=== PATIENT | male | born 1960 | race Caucasian/White ===

== ENCOUNTER 2017-12-09 10:33 | Inpatient (IN) | payer OTHER ==
[~2017-12-09] VITALS: Ht 167.6 cm; Wt 75.0 kg
[2017-12-09 10:41] VITALS: Ht 167.6 cm; Wt 75.0 kg
[2017-12-09 11:14] LABS: BASOPHIL % 0.1 % (0-2); PLATELET COUNT 217 x10^3mcL (130-400)
[2017-12-09 11:24] LABS: CALCIUM 8.4 mg/dL (8.5-10.1); CARBON DIOXIDE 27.9 mmol/L (21-32); CHLORIDE SERUM 98 mmol/L (98-107); CREATININE SERUM 0.9 mg/dL (0.7-1.3); GFR1 > 60 mL/min; GLUCOSE SERUM 141 mg/dL (74-106); POTASSIUM SERUM 3.5 mmol/L (3.5-5.1); SODIUM SERUM 133 mmol/L (136-145)
[2017-12-09 11:29] LABS: ALBUMIN 3.9 g/dL (3.4-5.0); ALKALINE PHOSPHATASE 81 U/L (46-116); ALT/SGPT 64 U/L (16-63); AST/SGOT 26 U/L (15-37); BILIRUBIN TOTAL 0.32 mg/dL (0.20-1.00); TOTAL PROTEIN, SERUM 7.2 g/dL (6.4-8.2)
[2017-12-09 11:39] LABS: CALCIUM 8.8 mg/dL (8.5-10.1); MAGNESIUM 1.8 mg/dL (1.8-2.4); T4(THYROXINE) 6.8 ug/dL (4.7-13.3)
[2017-12-09 17:24] VITALS: BP 124/81
[2017-12-09 21:15] VITALS: BP 103/65
[2017-12-10 05:38] VITALS: BP 106/68
[2017-12-10 06:30] LABS: BASOPHIL % 0.3 % (0-2); PLATELET COUNT 183 x10^3mcL (130-400)
[2017-12-10 06:36] LABS: ALKALINE PHOSPHATASE 68 U/L (46-116); ALT/SGPT 48 U/L (16-63); AST/SGOT 17 U/L (15-37); BILIRUBIN TOTAL 0.4 mg/dL (0.20-1.00); CALCIUM 8.2 mg/dL (8.5-10.1); CARBON DIOXIDE 26.9 mmol/L (21-32); CHLORIDE SERUM 104 mmol/L (98-107); CREATININE SERUM 0.7 mg/dL (0.7-1.3); GFR1 > 60 mL/min; GLUCOSE SERUM 93 mg/dL (74-106); MAGNESIUM 2.1 mg/dL (1.8-2.4); POTASSIUM SERUM 3.8 mmol/L (3.5-5.1); SODIUM SERUM 139 mmol/L (136-145)
[2017-12-10 07:14] LABS: ALBUMIN 3.1 g/dL (3.4-5.0); TOTAL PROTEIN, SERUM 5.9 g/dL (6.4-8.2)
[2017-12-10 08:19] VITALS: BP 129/98
[2017-12-10 10:14] VITALS: BP 129/98
[2017-12-10] MEDS ORDERED: AMOXICILLIN/CLA1 TA6 PO (10:18)
[2017-12-10] MEDS ORDERED: MECLIZINE HYDRO25 M1 PO (10:18)
== END 2017-12-10 15:20 | disposition home or self-care (01) | DRG 111 ==
LOC: ED 10:33 → DU 16:25
PROVIDERS: Emergency Medicine; Internal Medicine Pulmonary Disease
DX: H83.09 Labyrinthitis, unspecified ear (principal); E87.1 Hypo-osmolality and hyponatremia; J01.90 Acute sinusitis, unspecified; R55 Syncope and collapse; I45.10 Unspecified right bundle-branch block; H81.399 Other peripheral vertigo, unspecified ear; B34.9 Viral infection, unspecified; Z92.21 Personal history of antineoplastic chemotherapy; Z85.51 Personal history of malignant neoplasm of bladder
CPT/HCPCS: 82962; 83880; J1644; J2550; J7030; J8597; Q0092

== ENCOUNTER 2018-08-29 18:04 | Emergency (ER) | payer OTHER ==
[~2018-08-29] VITALS: Ht 167.6 cm; Wt 73.9 kg
[~2018-08-29 18:04] MED LIST: AMOXICILLIN/CLA1 TA6 PO; MECLIZINE HYDRO25 M1 PO
[2018-08-29 18:29] VITALS: Ht 167.6 cm; Wt 73.9 kg
[2018-08-29 21:30] VITALS: BP 165/96
== END 2018-08-29 21:30 | disposition home or self-care (01) ==
LOC: ED 18:04
DX: S01.412A Laceration without foreign body of left cheek and temporomandibular area, initial encounter (principal); Z98.890 Other specified postprocedural states; W22.8XXA Striking against or struck by other objects, initial encounter; Y93.89 Activity, other specified; Y92.89 Other specified places as the place of occurrence of the external cause; Y99.8 Other external cause status
CPT/HCPCS: 90715; J2001